=== PATIENT | male | born 1990 | race Two or more races ===

== ENCOUNTER 2019-05-06 18:03 | Emergency (ER) | payer MEDICAID ==
[~2019-05-06] VITALS: Ht 177.8 cm; Wt 75.7 kg
[~2019-05-06 18:03] MED LIST: COLACE100 MG PO; FOLIC ACID1 MG PO; ISO300 PO; METOPROLOL SUCC50 M2 PO; NEPHRO-VITE VITA1 EA PO; NOR10 PO; PER5 PO; PERCOCET1 TA2 PO; PHOSLO667 MG PO; PRINIVIL20 MG PO; PYRIDOXINE50 MG PO; REN800 PO; ROC25 PO
[2019-05-06 18:13] VITALS: Ht 177.8 cm; Wt 75.7 kg
[2019-05-06 21:17] VITALS: BP 141/84
== END 2019-05-06 21:17 | disposition home or self-care (01) ==
LOC: ED 18:03
DX: M71.21 Synovial cyst of popliteal space [Baker], right knee (principal); I10 Essential (primary) hypertension; N04.9 Nephrotic syndrome with unspecified morphologic changes; N19 Unspecified kidney failure; Z99.2 Dependence on renal dialysis